=== PATIENT | female | born 1945 | race Caucasian/White ===

== ENCOUNTER 2018-05-17 07:58 | Emergency (ER) | payer OTHER ==
[~2018-05-17] VITALS: Ht 167.6 cm; Wt 93.4 kg
--- NOTE | 2018-05-17 07:58 | NUR ---
PATIENT PRESENTS TO ED WITH ams brought in by fire rescue from [facility]---seen normal 1 hr prior to arrival--- pt is non responsive; trach to bvm RT at bedside. no obvious trauma noted.; BED DOWN. ER MD MADE AWARE OF PT STATUS. hr 40's upon arrival---changed from fire's defib pads to our defib pads.
--- NOTE | 2018-05-17 07:58 | NUR ---
md at bedside; pt placed on monitor defib pads--RT at bedside, being placed on vent. report being received from fire rescue.
--- NOTE | 2018-05-17 07:58 | NUR ---
Patient BIBA ACLS accompanied by Faraz DAILEY, transferred to bed 10. Dr. Marmolejo, RN and RT evaluating patient at bedside.
[2018-05-17 08:00] VITALS: BP 0/0
--- NOTE | 2018-05-17 08:00 | NUR ---
PT BIBA FOR ALOC WAS BAGGED WITH 100% FIO2 THEN AT [address] BLANCHARD AT BEDSIDE ACLS DRUGS AND CPR STARTED AT [address] BLANCHARD
[2018-05-17] MEDS ORDERED: NACL 0.9% 500 ML IV SCH (08:04)
--- NOTE | 2018-05-17 08:10 | NUR ---
CPR initiated by [facility] staff.
--- NOTE | 2018-05-17 08:15 | NUR ---
IO INSERTED ON THE LT TIBIA SEE CPR NOTES Addendum: 05/17/18 at 0820 by ASIM SEE CODE SHEET
--- NOTE | 2018-05-17 08:42 | NUR ---
CALLED OFFICE OF DR. VALDES AND SPOKE TO SAMMIE. INFORMED SAMMIE ABOUT THE PT IN THE ER FOR DR VALDES TO CALL BACK. SAMMIE STATED THAT DR. SCHNEIDER IS PROJECT INTERN FOR TODAY AND THAT SHE WILL PAGE PROJECT INTERN .
--- NOTE | 2018-05-17 08:43 | NUR ---
CALLED [facility] ([phone]) AND SPOKE TO ANIA. POSSIBLE PT QUALIFICATION. REFERRAL #: [id number]. WILL FOLLOW UP
--- NOTE | 2018-05-17 09:02 | NUR ---
CALLED ART CRITIC AT [phone] AND SPOKE TO CHARLIE. CHARLIE STATES THAT A DISPATCHER WILL CALL BACK.
--- NOTE | 2018-05-17 09:44 | NUR ---
CALLED DR VALDES'S OFFICE AT [phone] AND SPOKE TO SHEELA FOR FOLLOW UP. SHEELA STATES SHE WILL PAGE COMMUN[facility] ARTS WORKER , DR. SCHNEIDER.
--- NOTE | 2018-05-17 10:12 | NUR ---
CALLED MARKETING UNDERWRITER FOR FOLLOW UP AT [phone] AND SPOKE TO CHARLIE. CHARLIE STATES THAT THERE ARE 2 CALLS BEFORE THE PT. VERIFIED [facility] TELEPHONE NO. WILL FOLLOW UP AGAIN.
--- NOTE | 2018-05-17 10:18 | NUR ---
PT'S SON CALLED AND SPOKE TO DR AVENDANO.
--- NOTE | 2018-05-17 10:20 | NUR ---
DR HOWARD CALLED FROM DR VALDES'S OFFICE AND SPOKE TO DR AVENDANO ABOUT THE PT. Addendum: 05/17/18 at 1031 by [facility] DR HELLER CALLED AND SPOKE TO DR AVENDANO ABOUT THE PT. DR HELLER WILL SIGN PT'S CERTIFICATE.
--- NOTE | 2018-05-17 10:22 | NUR ---
BOWEN CALLED FROM [facility] VERIFYING IF THE CAUSE ANALYST HAS CALLED BACK YET. INFORMED BOWEN THAT CAUSE ANALYST STATED THAT THERE ARE 2 CALLS BEFORE THE PT.
--- NOTE | 2018-05-17 11:08 | NUR ---
DEPUTY ELMA MARTINEZ CALLED FROM THE MAID HOUSEKEEPER'S OFFICE. INFORMATION GIVEN. DEPUTY IS AWARE OF THE PRIMARY PHYSICIAN SIGNING THE CERTIFICATE. PER DEPUTY THE PT'S BODY WILL BE RELEASED TO [facility]. MAID HOUSEKEEPER CASE #: [id number]
--- NOTE | 2018-05-17 12:51 | NUR ---
HILL FROM [facility] CALLED FOR VERIFICATION IF THE PT IS STILL IN THE MED SURG DEPT. PT HASN'T BEEN PICKED UP BY MORTUARY AT THIS TIME. HILL WILL CALL BACK AGAIN.
--- NOTE | 2018-05-17 14:43 | NUR ---
HILL FROM [facility] CALLED TO VERIFY IF THE PT'S BODY IS STILL IN MED SURG. VERIFIED THAT THE BODY HASN'T BEEN PICKED UP BY MORTUARY.
--- NOTE | 2018-05-17 15:43 | NUR ---
SARAHI WITH [facility] [phone] STATED DRIVERS HAVE BEEN DISPATCHED AND SHOULD BE CALLING US SOON WITH AN ETA
--- NOTE | 2018-05-17 17:15 | NUR ---
[facility] FAMILY REMAINED AT BEDSIDE DURING FOOD TRAY ASSEMBLER.
== END 2018-05-17 08:18 | disposition expired ==
LOC: MED 07:58
DX: I46.9 Cardiac arrest, cause unspecified (principal); J44.9 Chronic obstructive pulmonary disease, unspecified; E11.9 Type 2 diabetes mellitus without complications; F03.90 Unspecified dementia, unspecified severity, without behavioral disturbance, psychotic disturbance, mood disturbance, and anxiety; K21.9 Gastro-esophageal reflux disease without esophagitis; I10 Essential (primary) hypertension; E07.9 Disorder of thyroid, unspecified; Z86.73 Personal history of transient ischemic attack (TIA), and cerebral infarction without residual deficits
CPT/HCPCS: 82948; 92950; 99285